=== PATIENT | female | born 1965 | race Two or more races ===

== ENCOUNTER 2019-01-15 20:54 | Emergency (ER) | payer SELFPAY ==
[~2019-01-15] VITALS: Ht 162.6 cm; Wt 77.1 kg
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
[2019-01-15] MEDS ORDERED: LORAZEPAM 1 MG TABLET ONE (21:21)
--- NOTE | 2019-01-15 21:25 | NUR ---
PT TAKEN TO CT VIA [facility].
[2019-01-15] MEDS ORDERED: LORAZEPAM 1 MG TABLET PO ONE (21:30)
--- NOTE | 2019-01-15 21:55 | NUR ---
FAMILY AT BEDSIDE
[2019-01-15] MEDS ORDERED: IBUPROFEN 600 MG TABLET PO ONE ×2 (22:30)
--- NOTE | 2019-01-15 22:34 | NUR ---
Patient discharged to home in stable condition. Written and verbal after care instructions given. Patient verbalizes understanding of instruction.
[2019-01-15 22:36] VITALS: BP 134/81
== END 2019-01-15 22:37 | disposition home or self-care (01) ==
LOC: ER 20:56
DX: S09.8XXA Other specified injuries of head, initial encounter (principal); M54.2 Cervicalgia; M54.5 Low back pain; M54.6 Pain in thoracic spine; V49.49XA Driver injured in collision with other motor vehicles in traffic accident, initial encounter; Y93.89 Activity, other specified; Y92.413 State road as the place of occurrence of the external cause; Y99.8 Other external cause status
CPT/HCPCS: 70450-TC; 72125-TC